=== PATIENT | male | born 1975 | race Two or more races ===

== ENCOUNTER 2021-11-07 20:46 | Emergency (ER) | payer OTHER ==
[~2021-11-07] VITALS: Ht 154.9 cm; Wt 72.6 kg
--- NOTE | 2021-11-07 21:15 | NUR ---
TO ER BED 14. BIBRA FROM HOME C/O VOMITTING BLOOD CLOTS X1DAY WITH ON AND OFF ABD PAIN. N/V. PT ALSO C/O EPIGASTRIC PAIN WHEN VOMITTING. 01/11 ON P/S. CHANGED INTO GOWN. EMESIS BAG PROVIDED. CONNECTED TO MONITOR. VSS. AWAITING MD CHING
[2021-11-07] MEDS ORDERED: ONDANSETRON HCL/PF 4 MG/2 ML VIAL ONE (21:28)
[2021-11-07] MEDS ORDERED: ONDANSETRON HCL/PF 4 MG/2 ML VIAL IVP ONE (21:30)
[2021-11-07] MEDS ORDERED: IV NS 0.9% 1,000 ML BAG IV ONE (21:30)
[2021-11-07 21:38] LABS: BASOPHILS % (AUTO) 0.2 % (0.0-2.0); EOSINOPHILS % (AUTO) 0.4 % (0.0-6.0); HEMATOCRIT 47 % (39-51); HEMOGLOBIN 16.5 g/dL (13.5-17.5); LYMPHOCYTES # (AUTO) 1.1 K/uL (0.8-4.8); LYMPHOCYTES % (AUTO) 7.9 % (20.0-44.0); MEAN CORPUSCULAR HGB CONC 35 g/dl (31.0-36.0); MEAN CORPUSCULAR VOLUME 97 fL (80-96); MONOCYTES # (AUTO) 0.5 K/uL (0.1-1.30); MONOCYTES % (AUTO) 3.9 % (2.0-12.0); NEUTROPHILS # (AUTO) 11.9 K/uL (1.8-8.9); NEUTROPHILS % (AUTO) 87.6 % (43.0-81.0); PLATELET COUNT (AUTO) 290 K/uL (150-450); RED BLOOD CELL COUNT(AUTO) 4.88 MIL/uL (4.5-6.0); WHITE BLOOD COUNT (AUTO) 13.6 K/uL (4.3-11.0)
[2021-11-07 22:03] LABS: ALBUMIN 4.7 g/dL (3.4-5.0); BILIRUBIN,DIRECT 0.1 mg/dL (0.0-0.2); BILIRUBIN,TOTAL 0.4 mg/dL (0.2-1.0); CALCIUM, SERUM 9.6 mg/dL (8.5-10.1); CREATININE 1.1 mg/dL (0.6-1.3); POTASSIUM 3.5 mmol/L (3.5-5.1); TOTAL PROTEIN, SERUM 8.1 g/dL (6.4-8.2)
[2021-11-07] MEDS ORDERED: OCTREOTIDE 1,250 MCG in IV NS 0.9% 250 ML IV ONE (22:30)
[2021-11-07] MEDS ORDERED: OCTREOTIDE 50 MCG/ML AMPUL IV ONE (22:30)
[2021-11-07] MEDS ORDERED: PANTOPRAZOLE 80 MG in IV NS 0.9% 100 ML IV ONE (22:30)
[2021-11-07] MEDS ORDERED: PANTOPRAZOLE 80 MG in IV NS 0.9% 500 ML IV ONE (22:30)
[2021-11-07] MEDS ORDERED: LIDOCAINE VISCOUS 2% UD 15 ML UDC MM ONE (22:30)
[2021-11-07] MEDS ORDERED: MAG HYDROX/AL HYDROX/SIMETH 30 ML UDC PO ONE (22:30)
[2021-11-07] MEDS ORDERED: LIDOCAINE VISCOUS 2% UD 15 ML UDC ONE (22:45)
[2021-11-07] MEDS ORDERED: PANTOPRAZOLE 40 MG VIAL ONE ×2 (22:45→22:55)
[2021-11-07] MEDS ORDERED: OCTREOTIDE 100 MCG/ML VIAL ONE ×2 (22:45→22:55)
[2021-11-07] MEDS ORDERED: MAG HYDROX/AL HYDROX/SIMETH 30 ML UDC ONE (22:45)
[2021-11-07] MEDS ORDERED: OCTREOTIDE 500 MCG/ML VIAL ONE (22:46)
[2021-11-08 00:06] VITALS: BP 128/77
--- NOTE | 2021-11-08 00:14 | NUR ---
PACE EPRP PAGED PER DR RUTLEDGE.
[2021-11-08] MEDS ORDERED: ACETAMINOPHEN 325 MG TABLET ONE (00:19)
[2021-11-08] MEDS ORDERED: ACETAMINOPHEN 325 MG TABLET PO ONE (00:30)
--- NOTE | 2021-11-08 01:35 | NUR ---
COVID SWAB DONE AND SENT TO LAB
--- NOTE | 2021-11-08 03:00 | NUR ---
Patient does not wish to proceed with medical care recommended by Dr. RUTLEDGE. Patient given information related to possible complications, up to and including , which could occur as a result of leaving the hospital at this time. Patient verbalizes understanding of risks involved due to leaving against medical advice. Patient has signed AMA form. IV removed. Catheter intact and site benign. Pressure and 4x4 applied to site. No bleeding noted.
== END 2021-11-08 03:00 | disposition left against medical advice (07) ==
LOC: ER 20:47
DX: K92.2 Gastrointestinal hemorrhage, unspecified (principal); Z20.822 Contact with and (suspected) exposure to COVID-19; Z53.29 Procedure and treatment not carried out because of patient's decision for other reasons; R16.0 Hepatomegaly, not elsewhere classified; I10 Essential (primary) hypertension
CPT/HCPCS: 36415; 76705; 80048; 80076; 83690; 85025; 87426; 93005; 96365; 96366; 96368; 96375; 99285; C9113 ×3; C9803; J2354 ×3; J2405; J7030 ×3; J7040; J7050